=== PATIENT | female | born 1995 | race Caucasian/White ===

== ENCOUNTER 2018-06-05 23:38 | Emergency (ER) | payer MEDICAID | END 2018-06-06 01:10 | disposition left against medical advice (07) | LOC: ERS 23:38 | DX: Z53.21 Procedure and treatment not carried out due to patient leaving prior to being seen by health care provider (principal) ==

== ENCOUNTER 2018-11-13 16:33 | Emergency (ER) | payer MEDICAID, SELFPAY | END 2018-11-13 18:00 | disposition home or self-care (01) | LOC: ERS 16:33 | DX: J30.9 Allergic rhinitis, unspecified (principal) | CPT/HCPCS: 99283 ==

== ENCOUNTER 2019-01-25 10:57 | Emergency (ER) | payer SELFPAY ==
[2019-01-25 11:19] LABS: #Eosinphils 0.1 thou/uL (0.0-0.7); #Lymphocytes 1.6 thou/uL (1.20-3.40); #Monocytes 0.6 thou/uL (0.11-0.59); #Neutrophils 7.5 thou/uL (1.40-6.50); %Basophils 0.1 % (0.0-1.0); %Eosinophils 1.4 % (0.0-10.0); %Lymphocytes 16.4 % (21.0-51.0); Hemoglobin 16.3 g/dL (12.0-16.0); Mean Corpuscular HGB CONC 34.6 g/dL (32.0-36.0); Mean Corpuscular Hemoglobin 32.8 pg (27.0-31.0); Mean Corpuscular Volume 94.7 fL (78.0-98.0); Mean Platelet Volume 7.4 fL (7.4-10.4); Platelet Count 269 thou/uL (130-400); RBC Distribution Width 10.7 % (11.5-14.5); Red Blood Cell (RBC) Count 4.96 mill/uL (4.20-5.40); White Blood Cell (WBC) Count 9.8 thou/uL (4.8-10.8)
[2019-01-25 11:41] LABS: ALT (SGPT) 12 U/L (8-55); AST (SGOT) 13 U/L (5-34); Albumin 4.9 g/dL (3.5-5.0); Alkaline Phosphatase 91 U/L (40-110); Anion Gap 12 mmol/L (10-20); BUN (Urea Nitrogen) 13 mg/dL (7.0-18.7); Bilirubin, Total 2.1 mg/dL (0.2-1.2); Calc. Creatinine Clearance 0 mL/min (70-130); Carbon Dioxide 24 mmol/L (22-29); Chloride 105 mmol/L (98-107); Estimated GFR-MDRD 88; Globulin 3.2 g/dL (2.4-3.5); Glucose 101 mg/dL (70-105); Lipase 14 U/L (8-78); Potassium 4.1 mmol/L (3.5-5.1); Protein, Total 8.1 g/dL (6.0-8.3); Sodium 137 mmol/L (136-145)
[2019-01-25] MEDS ORDERED: Dicyclomine 20 MG TAB ONE (12:17)
[2019-01-25] MEDS ORDERED: Ondansetron PF 4 MG/2 ML Vial ONE (12:17)
[2019-01-25 12:39] LABS: Bilirubin Negative (Negative); Blood, Urine 1+ (Negative); Clarity Turbid (Clear); Glucose, Urine (Dipstick) Normal (Negative); Leukocyte 250 Leu/uL (Negative); Nitrite Negative (Negative); Protein, Urine (Dipstick) 10 mg/dL (Neg-Trace); RBC/HPF 0-3 HPF (0-3); Squamous Epithelial 21-50 HPF (0-3); Urobilinogen Normal mg/dL (Less than 2); WBC/HPF 0-3 HPF (0-3)
[2019-01-25 12:40] LABS: Bacteria/HPF 1+ HPF (None Seen); Pregnancy Test - Urine (BHCG) Negative (Negative); Pregu Control Background? CLEAR/WHITE (CLR/WHITE); Pregu Control Bar Appear? YES (CONTROL BAR); Specific Gravity 1.028 (1.002-1.036)
== END 2019-01-25 13:27 | disposition home or self-care (01) ==
LOC: ERS 10:57
DX: R11.2 Nausea with vomiting, unspecified (principal); R19.7 Diarrhea, unspecified
CPT/HCPCS: 36415; 80053; 81003; 81015; 81025; 83690; 85025; 96361; 96374; J2405

== ENCOUNTER 2019-02-15 02:03 | Emergency (ER) | payer SELFPAY | END 2019-02-15 02:31 | disposition home or self-care (01) | LOC: ERS 02:03 | DX: M25.562 Pain in left knee (principal); X50.1XXA Overexertion from prolonged static or awkward postures, initial encounter; Y99.0 Civilian activity done for income or pay | CPT/HCPCS: 99283 ==

== ENCOUNTER 2019-08-14 03:11 | Emergency (ER) | payer BC, OTHER, SELFPAY ==
[2019-08-14 03:48] LABS: #Eosinphils 0.1 thou/uL (0.0-0.7); #Lymphocytes 2.5 thou/uL (1.20-3.40); #Monocytes 0.5 thou/uL (0.11-0.59); #Neutrophils 5.8 thou/uL (1.40-6.50); %Basophils 0.5 % (0.0-1.0); %Eosinophils 0.6 % (0.0-10.0); %Lymphocytes 28.2 % (21.0-51.0); %Monocytes 5.6 % (0.0-10.0); Hemoglobin 13.3 g/dL (12.0-16.0); Mean Corpuscular HGB CONC 34.4 g/dL (32.0-36.0); Mean Corpuscular Hemoglobin 31.7 pg (27.0-31.0); Mean Corpuscular Volume 92.1 fL (78.0-98.0); Mean Platelet Volume 6.9 fL (7.4-10.4); Platelet Count 286 thou/uL (130-400); RBC Distribution Width 10.9 % (11.5-14.5); Red Blood Cell (RBC) Count 4.19 mill/uL (4.20-5.40); White Blood Cell (WBC) Count 8.9 thou/uL (4.8-10.8)
[2019-08-14 03:59] LABS: Bacteria/HPF None Seen HPF (None Seen); Bilirubin Negative (Negative); Blood, Urine Trace (Negative); Clarity Clear (Clear); Glucose, Urine (Dipstick) Normal (Negative); Ketone, Urine Negative (Negative); Leukocyte Negative Leu/uL (Negative); Nitrite Negative (Negative); Protein, Urine (Dipstick) Negative (Neg-Trace); RBC/HPF 0-3 HPF (0-3); Specific Gravity, Urine 1.026 (1.002-1.036); Squamous Epithelial 0-3 HPF (0-3); Urobilinogen Normal mg/dL (Less than 2); pH, Urine 5.5 (5.0-9.0)
[2019-08-14 04:08] LABS: Pregnancy Test - Urine (BHCG) Negative (Negative); Pregu Control Background? CLEAR/WHITE (CLR/WHITE); Pregu Control Bar Appear? YES (CONTROL BAR); Specific Gravity 1.026 (1.002-1.036)
[2019-08-14 04:12] LABS: ALT (SGPT) 12 U/L (8-55); AST (SGOT) 15 U/L (5-34); Albumin 4.3 g/dL (3.5-5.0); Alkaline Phosphatase 67 U/L (40-110); Anion Gap 12 mmol/L (10-20); BUN (Urea Nitrogen) 12 mg/dL (7.0-18.7); Bilirubin, Total 1.1 mg/dL (0.2-1.2); Calc. Creatinine Clearance 0 mL/min (70-130); Carbon Dioxide 21 mmol/L (22-29); Chloride 107 mmol/L (98-107); Estimated GFR-MDRD 90; Globulin 2.8 g/dL (2.4-3.5); Glucose 107 mg/dL (70-105); Lipase 14 U/L (8-78); Potassium 3.6 mmol/L (3.5-5.1); Protein, Total 7.1 g/dL (6.0-8.3); Sodium 136 mmol/L (136-145)
[2019-08-14] MEDS ORDERED: Ondansetron PF 4 MG/2 ML Vial ONE (05:02)
[2019-08-14] MEDS ORDERED: Ketorolac Tromethamine 30 MG/ML VIAL ONE (05:02)
--- NOTE | 2019-08-14 07:54 | ULT ---
PRELIMINARY REPORT/[facility]/EMERGENCY AFTER HOURS PROCEDURE Pelvic ultrasound History: Pelvic pain. Nausea Comparison: None Findings: Unremarkable uterus containing IUD. Unremarkable right ovary. Complex thick-walled left ovarian cyst measuring 3.6 x 3.2 x 2.2 cm. No ovarian torsion. Trace free fluid noted primarily in the right adnexal region. Impression: Complex left ovarian cyst. No torsion. Trace free fluid. ELECTRONICALLY SIGNED BY: Iker Slaughter MD Aug 14, 2019 6:45:10 AM CDT This report is intended for review by the ordering physician only, in accordance of law. If you recei ve this report in error, please call [facility] at [phone]. FINAL REPORT Exam: Transabdominal pelvic ultrasound HISTORY: Pelvic pain and nausea. History of right ovarian cyst. COMPARISON: None. CORRELATION: Abdomen and pelvis CT 08/14/2019. TECHNIQUE: Transabdominal imaging of the pelvis is performed. Ovaries are interrogated with grayscale , color flow, Doppler imaging and spectral waveform analysis. FINDINGS: Intrauterine device is identified, limiting evaluation of the endometrium. Uterus has a normal myometrial echotexture. No masses. Uterus: 9.4 x 3.9 x 5.5 cm. Left ovary: Complex 2.2 x 3.3 x 3.6 cm cyst. Left ovary: 4.8 x 3.7 x 5.2 cm. Right ovary: Normal echotexture. 3.1 x 1.6 x 1.4 cm. Free fluid: Right adnexal free fluid. Ovarian Doppler: Vascular flow to both ovaries. IMPRESSION: 1. Report is in agreement with initial report by [facility]. 2. Complex left ovarian cyst. 3. Free fluid in the pelvis. 4. Intrauterine device limiting evaluation of the endometrium. Transcribed Date/Time: 08/14/2019 8:15 AM
--- NOTE | 2019-08-14 08:03 | CT ---
PRELIMINARY REPORT/[facility]/EMERGENCY AFTER HOURS PROCEDURE ABDOMINAL AND PELVIC CT WITH IV CONTRAST TECHNIQUE: IV contrast enhanced axial CT images were obtained through the abdomen and pelvis. Multiplanar reformatted images were provided. History: Lower abdominal pain Comparison: None FINDINGS: No acute basilar lung abnormality noted. The liver and spleen are unremarkable. The pancreas appears normal. The adrenal glands are unremarkable. The gallbladder and biliary system are unremarkable. Both kidneys appear normal. There is no hydronephrosis. The bladder is unremarkable. No acute bowel abnormality noted. Bowel loops are unremarkable. Mild apparent thickening of multipl e proximal small bowel loops in the left upper quadrant is likely due to incomplete distention. There is no significant mesenteric edema, suspicious free fluid or fat stranding in association. The appendix is not visualized. Presumed appendectomy changes noted at the cecal base. IUD noted. The right ovary is obscured by pelvic loops. No obvious right adnexal abnormality noted. Interposed between the uterine fundus and bladder dome is a thick-walled peripherally enhancing compl ex low density structure presumably arising from the left ovary. A normal left ovary is not visualized. The structure in question measures approximately 5.8 x 3.3 x 4.4 cm in size. Adjacent f at appears slightly indistinct. There is trace left adnexal free fluid. Scattered mildly prominent nonspecific mesenteric lymph nodes noted. The abdominal aorta is non-aneurysmal. Visualized osseous structures are unremarkable for patient's age. IMPRESSION: Thick-walled faintly enhancing left adnexal lesion interposed between the uterine fundus and bladder dome. This is suspected to represent a complex left ovarian cyst. If there is concern for infection, the possibility of a developing left adnexal tubo-ovarian abscess would be another conside ration. In the context of a positive hCG, the possibility of a left adnexal ectopic should be considered. Correlation with patient's status is recommended in that regard. Pe lvic sonography can be performed if additional characterization is needed. ELECTRONICALLY SIGNED BY: Iker Slaughter MD Aug 14, 2019 4:54:03 AM CDT This report is intended for review by the ordering physician only, in accordance of law. If you recei ve this report in error, please call [facility] at [phone]. FINAL REPORT EXAM: CT ABDOMEN AND PELVIS HISTORY: Sudden onset lower abdominal pain COMPARISON: None. Procedure: Multiple contiguous axial images were obtained and a CT of the abdomen and pelvis with IV contrast. C oronal reformats were performed. FINDINGS: Lower Chest: within normal limits. Vessels: Normal caliber aorta. No periaortic fat stranding Heart: Normal heart size. No significant pericardial fluid Abdomen: Portal vein:Patent Gallbladder: No calcified gallstones. Normal caliber wall. Liver: within normal limits. Pancreas: within normal limits. Spleen: within normal limits. Adrenals: within normal limits. Kidneys: Symmetric enhancement. No obstructive uropathy. Peritoneum: No free air. There is fluid along the right paracolic gutter. Bowel: Limited evaluation due to the lack of oral contrast administration. No evidence of bowel obstr uction. Ileocecal junction is unremarkable. Normal caliber appendix. Scattered fecal material in a nondistended, nondilated colon. Mesentery and Retroperitoneum: No enlarged mesenteric or retroperitoneal lymph nodes. Abdominal Wall: within normal limits. Pelvis: Reproductive Organs: Intrauterine device is identified. Peripherally enhancing hypodense lesion in th e left adnexa measures 2.9 x 4.4 cm. Left ovarian cyst is favored. Pelvis: No mass, lymphadenopathy or free air. Small amount of free fluid in the pelvis. Bladder: within normal limits. Bones: within normal limits. IMPRESSION: 1. This report is in agreement with the initial report by [facility]. 2. Left ovarian cyst. Fluid in the pelvis and right lower quadrant which may be secondary to a ruptur ed ovarian cyst. Transcribed Date/Time: 08/14/2019 8:18 AM
[2019-08-14] MEDS ORDERED: Iopamidol 370 76% 100 ML VIAL ONE (13:36)
== END 2019-08-14 07:00 | disposition home or self-care (01) ==
LOC: ERS 03:11
DX: N83.202 Unspecified ovarian cyst, left side (principal)
CPT/HCPCS: 74177; 76856; 80053; 81003; 81015; 81025; 83690; 85025; 93976; 96374; 96375; J1885; J2405

== ENCOUNTER 2021-10-31 10:27 | Emergency (ER) | payer BC, SELFPAY ==
[2021-10-31 12:43] LABS: #Eosinphils 0.1 thou/uL (0.0-0.7); #Monocytes 0.4 thou/uL (0.11-0.59); #Neutrophils 4.4 thou/uL (1.40-6.50); %Basophils 0.4 % (0.0-1.0); %Eosinophils 1.4 % (0.0-10.0); %Monocytes 5.9 % (0.0-10.0); %Neutrophils 63.3 % (42.0-75.0); Hemoglobin 14.2 g/dL (12.0-16.0); Mean Corpuscular HGB CONC 33.6 g/dL (32.0-36.0); Mean Corpuscular Hemoglobin 33.3 pg (27.0-31.0); Mean Corpuscular Volume 99.1 fL (78.0-98.0); Mean Platelet Volume 6.8 fL (7.4-10.4); Platelet Count 291 thou/uL (130-400); RBC Distribution Width 10.8 % (11.5-14.5); Red Blood Cell (RBC) Count 4.27 mill/uL (4.20-5.40); White Blood Cell (WBC) Count 6.9 thou/uL (4.8-10.8)
[2021-10-31 12:59] LABS: BHCG - Serum Negative (NEGATIVE); Pregs Control Background? CLEAR/WHITE (CLR/WHITE); Pregs Control Bar Appear? YES (CONTROL BAR)
[2021-10-31 13:10] LABS: Bacteria/HPF 1+ HPF (None Seen); Bilirubin Negative (Negative); Blood, Urine Negative (Negative); Clarity Clear (Clear); Glucose, Urine (Dipstick) Normal (Negative); Ketone, Urine Negative (Negative); Leukocyte 500 Leu/uL (Negative); Nitrite Negative (Negative); Protein, Urine (Dipstick) Negative (Neg-Trace); RBC/HPF 0-3 HPF (0-3); Specific Gravity, Urine 1.005 (1.002-1.036); Squamous Epithelial 0-3 HPF (0-3); Urobilinogen Normal mg/dL (Less than 2); pH, Urine 5.5 (5.0-9.0)
[2021-10-31 13:11] LABS: ALT (SGPT) 11 U/L (8-55); AST (SGOT) 12 U/L (5-34); Albumin 4.4 g/dL (3.5-5.0); Alkaline Phosphatase 58 U/L (40-110); Anion Gap 9 mmol/L (10-20); BUN (Urea Nitrogen) 7 mg/dL (7.0-18.7); Bilirubin, Total 1.6 mg/dL (0.2-1.2); Calc. Creatinine Clearance 0 mL/min (70-130); Calcium 9.7 mg/dL (7.8-10.44); Carbon Dioxide 27 mmol/L (22-29); Chloride 106 mmol/L (98-107); Estimated GFR 113; Globulin 2.7 g/dL (2.4-3.5); Glucose 125 mg/dL (70-105); Potassium 4.1 mmol/L (3.5-5.1); Protein, Total 7.1 g/dL (6.0-8.3); Sodium 138 mmol/L (136-145)
[2021-10-31] MEDS ORDERED: Azithromycin 250 MG TAB ONE (14:09)
[2021-10-31] MEDS ORDERED: cefTRIAXone\\ROCEPHIN 500 MG VIAL ONE (14:09)
[2021-10-31 20:10] LABS: Chlam.trachomatis by PCR,Urine DETECTED (NotDetected)
== END 2021-10-31 14:20 | disposition home or self-care (01) ==
LOC: ERS 10:27
DX: N76.0 Acute vaginitis (principal); N73.9 Female pelvic inflammatory disease, unspecified; B96.89 Other specified bacterial agents as the cause of diseases classified elsewhere
CPT/HCPCS: 36415; 80053; 81003; 81015; 84703; 85025; 87480; 87491; 87510; 87591; 87660; 87661; 96372; 99283; J0696

== ENCOUNTER 2023-01-24 09:04 | Emergency (ER) | payer BC, SELFPAY ==
[2023-01-24 10:03] LABS: SARS-CoV-2 NAA Rapid Test Not Detected (NotDetected)
== END 2023-01-24 10:08 | disposition home or self-care (01) ==
LOC: ERS 09:04
DX: J06.9 Acute upper respiratory infection, unspecified (principal)
CPT/HCPCS: 87081; 87430; 99284

== ENCOUNTER 2023-12-09 11:41 | Emergency (ER) | payer SELFPAY | END 2023-12-09 12:35 | disposition home or self-care (01) | LOC: ERS 11:41 | DX: S90.112A Contusion of left great toe without damage to nail, initial encounter (principal); W20.8XXA Other cause of strike by thrown, projected or falling object, initial encounter | CPT/HCPCS: 99283 ==